=== PATIENT | female | born 1955 | race Two or more races ===

== ENCOUNTER 2016-12-04 08:03 | Emergency (ER) | payer MEDICARE, MEDICAID ==
[~2016-12-04] VITALS: Ht 160 cm; Wt 85.3 kg
[2016-12-04 08:40] VITALS: BP 166/74
== END 2016-12-04 09:30 | disposition home or self-care (01) ==
LOC: ER 08:03
DX: J20.9 Acute bronchitis, unspecified (principal); J45.909 Unspecified asthma, uncomplicated
CPT/HCPCS: 71020

== ENCOUNTER 2017-09-07 03:07 | Emergency (ER) | payer MEDICARE, MEDICAID ==
[~2017-09-07] VITALS: Ht 167.6 cm; Wt 72.6 kg
[2017-09-07] MEDS ORDERED: IPRATROPIUM BROM 0.5 MG/2.5ML INH SOL NEB ONE (03:45)
[2017-09-07] MEDS ORDERED: ALBUTEROL SULF 2.5 MG/0.5ML(0.5%) NEB SOLN NEB ONE (03:45)
[2017-09-07 06:53] VITALS: BP 131/78
== END 2017-09-07 07:03 | disposition home or self-care (01) ==
LOC: ER 03:22
DX: J20.9 Acute bronchitis, unspecified (principal)
CPT/HCPCS: 71046; 94640